=== PATIENT | female | born 1985 | race Caucasian/White ===

== ENCOUNTER 2019-06-05 07:37 | Emergency (ER) | payer OTHER ==
[2019-06-05] MEDS: DEXAMETHASONE 10 MG/ML 1 ML INJ IM (08:33)
[2019-06-05] MEDS: KETOROLAC 30 MG INJ IM (08:33)
== END 2019-06-05 09:23 | disposition home or self-care (01) ==
LOC: FTE 07:37
DX: J02.9 Acute pharyngitis, unspecified (principal)
CPT/HCPCS: 36415; 81025; 86308; 87880; 96372; 99284-25